=== PATIENT | female | born 2000 | race African-American/Black ===

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

== ENCOUNTER 2019-01-17 23:21 | Emergency (ER) | payer MEDICAID ==
--- NOTE | 2019-01-18 00:33 | ER Document Report ---
ED General - General Chief Complaint: Palpitations Stated Complaint: ARM PAIN Time Seen by Provider: 01/17/19 23:52 Notes: Patient is a 18-year-old female presents with complaint of palpitations to the point where she can feel and see her pulse beating in her wrist. She also has a bit of heartburn. Said symptoms she has had in the past but not to this extent. She says she noticed some starting a little bit after taking some pre-workout e nergy pills which she has resumed taking it. She says usually takes one for working out but today she decided to take 2. She denies headache. No nausea or vomiting. No focal weakness or numbness. She has no chronic medical problems and is otherwise healthy. TRAVEL OUTSIDE OF THE [place] IN LAST 30 DAYS: No - Related Data Allergies/Adverse Reactions: amoxicillin Allergy (Verified 09/09/17 16:26) Past Medical History - Social History Smoking Status: Never Smoker Frequency of alcohol use: None Drug Abuse: None Family History: None Patient has suicidal ideation: No Patient has homicidal ideation: No - Past Medical History Cardiac Medical History: Denies: Hx Coronary Artery Disease, Hx Heart Attack, Hx Hypertension Pulmonary Medical History: Denies: Hx Asthma, Hx Bronchitis, Hx COPD, Hx Pneumonia Neurological Medical History: Denies: Hx Cerebrovascular Accident, Hx Seizures Renal/ Medical History: Denies: Hx Peritoneal Dialysis GI Medical History: Reports: Hx Gastroesophageal Reflux Disease Musculoskeletal Medical History: Denies Hx Arthritis Past Surgical History: Reports: Hx Cholecystectomy - Immunizations Immunizations up to date: Yes Hx Diphtheria, Pertussis, Tetanus Vaccination: No Review of Systems - Review of Systems Notes: My Normal Review Basic REVIEW OF SYSTEMS: CONSTITUTIONAL : Denies fever, chills, or sweats. Denies recent illness. EENT: Denies eye, ear, throat, or mouth pain or symptoms. Denies nasal or sinus congestion. CARDIOVASCULAR: Has palpitations RESPIRATORY: Denies cough, cold, or chest congestion. Denies shortness of breath, difficulty breathing, or wheezing. GASTROINTESTINAL: Denies abdominal pain. Denies nausea, vomiting, or diarrhea. MUSCULOSKELETAL: Denies neck or back pain or joint pain or swelling. SKIN: Denies rash or skin lesions. NEUROLOGICAL: Denies altered mental status or loss of consciousness. Denies headache. Denies weakness or paralysis or loss of use of either side. Denies problems with gait or speech. Denies sensory or motor loss. PSYCHIATRIC: Denies anxiety or stress. ALL OTHER SYSTEMS REVIEWED AND NEGATIVE. Physical Exam - Vital signs Vitals: Temp Pulse Resp BP Pulse Ox 98.0 F 109 H 20 164/82 H 98 01/17/19 23:26 01/17/19 23:26 01/17/19 23:26 01/17/19 23:26 01/17/19 23:26 - Notes Notes: General Appearance: Well nourished, alert, cooperative, no acute distress, no obvious discomfort. Well-appearing. Vitals: reviewed, See vital signs table. Eyes: PERRL, EOMI, Conjuctiva clear Neck: Supple, No thyromegaly Lungs: No wheezing, No rales, No rhonci, No accessory muscle use, good air exchange bilaterally. Heart: Normal rate, Regular rythm, No murmur, no rub Extremities: good pulses in all extremities, no swelling or tenderness in the extremities, no edema. Skin: warm, dry, appropriate color, no rash Neuro: speech clear, oriented x 3, normal affect, responds appropriately to q uestions. Course - Re-evaluation Re-evalutation: 01/18/19 02:13 I suspect patient's palpitations and symptoms are likely related to the pre-work-up pills she has been taking. She says she just recently started taking them but mack took a double dose of the pills and then started feeling unwell with the palpitations and a little bit of what she considered to be heartburn. She is now feeling improved. She says she still has some slight heartburn but no longer feels as if she has palpitations. She was found to be hypertensive upon arrival. I informed her to keep a log of her blood pressures over the next few days and follow-up with primary care doctor if they are elevated. I encouraged her return to ER anytime if she is having recurring or symptoms, chest pain, fevers, current palpitations despite not taking the pre- workout pills anymore, where she feels that she is worsening in any way. Patient agrees with plan and will be discharged home. Dictation of this chart was performed using voice recognition software; therefore, there may be some unintended grammatical errors. - Vital Signs Vital signs: Temp Pulse Resp BP Pulse Ox 98.0 F 109 H 25 H 170/94 H 100 06/09/19 23:26 01/17/19 23:26 01/18/19 02:00 01/18/19 00:01 01/18/19 02:00 - EKG Interpretation by Me Additional EKG results interpreted by me: 01/18/19 00:33 EKG is reviewed and interpreted by me. EKG shows sinus rhythm with rate of [address] segment elevation or depression. No ischemic T wave inversions. [place] interval, QRS duration, QT intervals are within normal range. Old EKG for comparison is from 2017. Discharge - Discharge Clinical Impression: Palpitations Condition: Good Disposition: HOME, SELF-CARE Additional Instructions: Blood work looking at your heart and your thyroid function was normal. Your EKG did not show any concerning findings in regards to the rhythm of your heart. Your x-ray was normal-appearing as well. Please stop taking the pre-workout pills. Avoid any pills that have caffeine or even a "natural form" of caffeine in them. Please take Pepcid every day for heartburn. Please return to the ER immediately if you have worsening palpitations, chest pain, difficulty breathing, or if you feel unwell in any way. Forms: Return to Work
--- NOTE | 2019-01-18 00:42 | RADIOLOGY REPORT (SQ) ---
EXAM DESCRIPTION: [facility]: XR CHEST 2 VIEWS Views: 2 CLINICAL HISTORY: 18 years Female, chest pain COMPARISON: None. FINDINGS: The lungs are clear. No pneumothorax or significant pleural effusion. Cardiomediastinal silhouette is within normal limits. Bony structures are unremarkable for age. Right upper quadrant surgical clips are noted. IMPRESSION: 1. No acute cardiothoracic abnormality. 2. Previous cholecystectomy.
[2019-01-18] MEDS ORDERED: MAG HYDROX/AL HYDROX/SIMETH SUSP 30 ML UDCUP PO ONE (02:11)
[2019-01-18] MEDS ORDERED: LIDOCAINE 2% VISCOUS SOLN 20 ML UDCUP PO ONE (02:11)
[2019-01-18] MEDS ORDERED: METOCLOPRAMIDE HCL ORAL SOLN 10 MG/10 ML UDCUP PO ONE (02:11)
[2019-01-18 02:33] VITALS: BP 146/80
--- NOTE | 2019-01-18 07:29 | EKG REPORT ---
SEVERITY:- NORMAL ECG - SINUS RHYTHM : Confirmed by: Sb Davis MD 18-Jan-2019 07:29:33
== END 2019-01-18 02:37 | disposition home or self-care (01) ==
LOC: ER 23:21
DX: R00.2 Palpitations (principal); R12 Heartburn; I10 Essential (primary) hypertension; Z88.0 Allergy status to penicillin
CPT/HCPCS: 93005; 99285; 36415; 84443; 84484; 71046; 93010; J3490 ×3

== ENCOUNTER 2020-04-10 06:30 | Emergency (ER) | payer BC, MEDICAID ==
--- NOTE | 2020-04-10 09:17 | ER Document Report ---
ED General - General Chief Complaint: Vomiting Stated Complaint: VOMITING Time Seen by Provider: 04/10/20 09:16 TRAVEL OUTSIDE OF THE [place] IN LAST 30 DAYS: No - HPI Notes: 19-year-old female presents for work clearance note. Patient states that she was consuming alcohol over the weekend, yesterday at 2 AM she vomited due to feeling hung over. She states that she called out of work yesterday and today her work requested her to see a doctor so that she may be cleared to go back to work. Patient states that she has not had any nausea or vomiting since yesterday morning. She denies abdominal pain. Otherwise denies complaints. - Related Data Allergies/Adverse Reactions: amoxicillin Allergy (Verified 09/09/17 16:26) Past Medical History - General Information source: Patient - Social History Smoking Status: Current Every Day Smoker Family History: None - Past Medical History Cardiac Medical History: Denies: Hx Coronary Artery Disease, Hx Heart Attack, Hx Hypertension Pulmonary Medical History: Denies: Hx Asthma, Hx Bronchitis, Hx COPD, Hx Pneumonia Neurological Medical History: Denies: Hx Cerebrovascular Accident, Hx Seizures Renal/ Medical History: Denies: Hx Peritoneal Dialysis GI Medical History: Reports: Hx Gastroesophageal Reflux Disease Musculoskeletal Medical History: Denies Hx Arthritis Past Surgical History: Reports: Hx Cholecystectomy - Immunizations Immunizations up to date: Yes Hx Diphtheria, Pertussis, Tetanus Vaccination: No Review of Systems - Review of Systems Constitutional: denies: Chills, Fever EENT: No symptoms reported Cardiovascular: denies: Chest pain Respiratory: denies: Cough, Short of breath Gastrointestinal: denies: Abdominal pain Genitourinary: No symptoms reported Female Genitourinary: No symptoms reported Musculoskeletal: No symptoms reported Skin: No symptoms reported Hematologic/Lymphatic: No symptoms reported Neurological/Psychological: denies: Headaches Physical Exam - Vital signs Vitals: Temp Pulse Resp BP Pulse Ox 98.4 F 59 L 16 151/75 H 100 04/10/20 06:35 04/10/20 06:35 04/10/20 06:35 04/10/20 06:35 04/10/20 06:35 - General General appearance: Appears well In distress: None - HEENT Head: Normocephalic, Atraumatic Eyes: No: Scleral icterus Extraocular movements intact: Yes Pupils: PERRL - Respiratory Breath sounds: Normal - Cardiovascular Rhythm: Regular Heart sounds: Normal auscultation - Abdominal Distension: No distension Bowel sounds: Normal Tenderness: Nontender - Extremities General upper extremity: Normal ROM General lower extremity: Normal ROM - Neurological Neuro grossly intact: Yes Cognition: Normal Orientation: AAOx4 - Psychological Associated symptoms: Normal affect - Skin Skin Temperature: Warm Course - Re-evaluation Re-evalutation: 04/10/20 09:30 19 her female here requesting a work note per her employer's request. Patient reports that she had consumed alcohol, which was hung over and had an episode of vomiting yesterday morning at 2 AM. Subsequently had a call of work. She has had no symptoms since 2 AM yesterday, greater than 24 hours ago. She is well- appearing on exam, vitals are stable, no abdominal tenderness. A work note will be provided clearing her to return to work today. I will prescribe her Zofran in case she has nausea associated with alcohol consumption again. Return precautions were discussed, patient was stable at time of discharge. - Vital Signs Vital signs: Temp Pulse Resp BP Pulse Ox 98.4 F 59 L 16 151/75 H 100 04/10/20 06:35 04/10/20 06:35 04/10/20 06:35 04/10/20 06:35 04/10/20 06:35 Discharge - Discharge Clinical Impression: Encounter for physical examination Condition: Stable Disposition: HOME, SELF-CARE Prescriptions: Ondansetron [Zofran Odt 4 mg Tablet] 1 tab PO Q4H PRN #15 tab.rapdis PRN Reason: For Nausea/Vomiting Forms: Return to Work
[2020-04-10 10:24] VITALS: BP 138/69
== END 2020-04-10 09:50 | disposition home or self-care (01) ==
LOC: ER 06:30
DX: R11.10 Vomiting, unspecified (principal); F17.200 Nicotine dependence, unspecified, uncomplicated; Z88.0 Allergy status to penicillin
CPT/HCPCS: 99283